=== PATIENT | male | born 1965 | race Caucasian/White ===

== ENCOUNTER 2017-07-15 10:39 | Emergency (ER) | payer BC, OTHER ==
[2017-07-15 12:10] LABS: Hematocrit 48 % (42-52); Hemoglobin 16.8 g/dl (14.0-18.0); Mean Corpuscular HGB Conc 35 g/dl (31-36); Mean Corpuscular Hemoglobin 32 pg (27-31); Mean Corpuscular Volume 90 fL (80-94); Mean Platelet Volume 8 um3 (7.4-10.4); Red Blood Count 5.29 10^6/ul (4.0-5.4); Red Cell Distribution Width 12 % (10.5-15); White Blood Count 7.4 10^3/ul (3.5-10.8)
[2017-07-15] MEDS ORDERED: Acetaminophen TAB* 325 MG PO ONE (12:19)
[2017-07-15 12:25] LABS: Albumin 4.3 g/dL (3.2-5.2); Calcium 9.3 mg/dL (8.6-10.3); EGFR African American 109.2 (>60); EGFR Non-African American 84.9 (>60); Globulin 2.5 g/dL (2-4); Potassium 3.7 mmol/L (3.5-5.0); Total Bilirubin 0.9 mg/dL (0.2-1.0); Total Protein 6.8 g/dL (6.4-8.9)
[2017-07-15 12:26] LABS: C Reactive Protein 2.14 mg/L (< 5.00)
[2017-07-15 13:12] VITALS: BP 142/90
[2017-07-15 13:59] LABS: Urine Bilirubin Negative (Negative); Urine Glucose Negative (Negative); Urine Nitrite Negative (Negative)
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
== END 2017-07-15 13:11 | disposition home or self-care (01) ==
LOC: ED 10:39
DX: S40.022A Contusion of left upper arm, initial encounter (principal); S70.02XA Contusion of left hip, initial encounter; I10 Essential (primary) hypertension; Z87.891 Personal history of nicotine dependence; V89.2XXA Person injured in unspecified motor-vehicle accident, traffic, initial encounter; Y92.410 Unspecified street and highway as the place of occurrence of the external cause
CPT/HCPCS: 36415; 80053; 81003; 84484; 85025; 85610; 86140; 93005; 99283

== ENCOUNTER 2018-07-02 13:33 | Emergency (ER) | payer SELFPAY ==
[2018-07-02] MEDS ORDERED: Tetan/Diph/Pertus SYR(Tdap)* 0.5 ML SYR(BOOSTRIX) use SYR IM ONE (15:18)
[2018-07-02] MEDS ORDERED: Lidocaine 1%* 5 ML VIAL INJ ONE (15:18)
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
[2018-07-02 16:12] VITALS: BP 0/0
== END 2018-07-02 16:11 | disposition home or self-care (01) ==
LOC: ED 13:33
DX: S61.012A Laceration without foreign body of left thumb without damage to nail, initial encounter (principal); S66.222A Laceration of extensor muscle, fascia and tendon of left thumb at wrist and hand level, initial encounter; W26.0XXA Contact with knife, initial encounter; Y92.9 Unspecified place or not applicable; Z23 Encounter for immunization; I10 Essential (primary) hypertension; Z88.8 Allergy status to other drugs, medicaments and biological substances; Z87.891 Personal history of nicotine dependence
CPT/HCPCS: 12001; 90471; 90715; 99282

== ENCOUNTER 2018-07-06 15:04 | Day surgery (SDC) | payer BC ==
[~2018-07-06 15:04] MED LIST: Acetaminophen TAB* 325 MG PO PRN; Buffered Lidocaine 0.9% SYRIN* 5 ML/SYR SYRINGE INTRADERM ONE; DiMENhydriNATE IV* 50 MG/ML VIAL IV PUSH PRN; Famotidine IV* 10 MG/ML 2 ML (20 mg) IV ONE; Famotidine IV* 10 MG/ML 2 ML (20 mg) ONE; Naloxone* 0.4 MG/ML 1 ML VIAL IV PRN; oxyCODONE TAB* 5 MG TAB PO PRN
[2018-07-06] MEDS ORDERED: fentaNYL* 50 MCG/ML 2 ML VIAL (100 MCG VIAL) ONE (17:27)
[2018-07-06] MEDS ORDERED: Midazolam* 1 MG/ML 5 ML VIAL (5 MG) ONE (17:28)
[2018-07-06] MEDS ORDERED: Bupivacaine 0.25% SDV PF* 10 ML VIAL INJ ONE (18:03)
[2018-07-06] MEDS ORDERED: Lidocaine 2% PF * 5 ML VIAL ONE (18:31)
[2018-07-06] MEDS ORDERED: Propofol* 10 MG/ML 20 ML BTL ONE (18:31)
[2018-07-06] MEDS ORDERED: Ondansetron INJ* 2 MG/ML VIAL ONE (18:31)
[2018-07-06] MEDS ORDERED: Ketorolac INJ* 30 MG/ML 1 ML VIAL ONE (18:31)
[2018-07-06 19:07] VITALS: BP 135/85
--- NOTE | 2018-07-07 09:15 | OP ---
DATE OF OPERATION: 07/06/18 [facility] DATE OF : 69 SURGEON: Damian Fernandes MD DEPUTY OF COUNTER INTELLIGENCE: None. ANESTHESIOLOGIST: Dr. Patel ANESTHESIA: Local MAC. PRE-OP DIAGNOSIS: Left thumb extensor tendon laceration over the proximal phalanx. POST-OP DIAGNOSIS: Left thumb extensor tendon laceration over the proximal phalanx. OPERATIVE PROCEDURE: Repair of left thumb extensor tendon laceration over the proximal phalanx. INDICATIONS: Victor M had a laceration. He had about of 40 degree extension lag of the IP joint. We talked about the risks and benefits. He wanted to proceed with surgery. ESTIMATED BLOOD LOSS: 2 mL. COMPLICATIONS: None. FINDINGS: See above and below. DESCRIPTION OF PROCEDURE: Victor M was seen in the preoperative holding area. The correct side and site of the procedure were identified. We came back to the operating room. The arm was prepped and draped in the usual fashion. I did a digital block with 0.25% plain Marcaine. A time-out was performed. The arm was exsanguinated with an Esmarch and the tourniquet inflated to 250 mmHg. I extended the traumatic laceration little bit proximal and distally. The flaps were raised to expose the tendon laceration, this was cleaned. I placed a one 6-0 Prolene suture with the knot buried in the subtendinous fatty layer to give the tendon nice bed to snug. I then used the 3-0 FiberWire in Silfverskiold-type fashion to repair the extensor tendon. This came together very nicely with good apposition. After the repair was done I flexed and extended the IP joint multiple times. There was absolutely no gapping at the repair site. Thumb sat just right at neutral. Everything was looking good, so we irrigated out the wounds. The skin was closed with 4-0 nylon suture and the wound was dressed and an Alumafoam splint was applied with the IP in the neutral extension. He was taken to the recovery room in stable condition. [id number][place] [place] [id number] EN
== END 2018-07-06 19:20 | disposition home or self-care (01) ==
LOC: OREAST 15:04
PROVIDERS: ATTEND Orthopaedic Surgery Hand Surgery
DX: S66.222A Laceration of extensor muscle, fascia and tendon of left thumb at wrist and hand level, initial encounter (principal); Z72.0 Tobacco use; I10 Essential (primary) hypertension; W45.8XXA Other foreign body or object entering through skin, initial encounter; Y92.9 Unspecified place or not applicable
CPT/HCPCS: J1885; J2250; J2405; J2704; J3010; J3490

== ENCOUNTER 2018-09-13 21:30 | Emergency (ER) | payer BC, OTHER ==
--- OUTSIDE RECORDS SUMMARY | 2018-09-13 21:36 | XMS REPORT | Continuity of Care Document ---
:1965 External Reference #:[id number] Author Name Yamileth Hu Care Team Providers Name Role Phone Patient's Choice Primary Care Physician Unavailable Payers Type Date Identification Numbers Payment Provider Subscriber Policy Number: [id number] [employer] Victor M Guan PayID: [id number] [address] [place] [address] Expires: 2018 Policy Number: [id number] [facility] Ppo Victor M Guan Group Number: [id number] [address] [address] PayID: [id number] MELVI Méndez [id number] Advance Directives Description No Information Available Problems Date Description Provider Status Onset: 07/04/2018 Laceration of extensor muscle, fascia and Damian Fernandes MD Active tendon of left thumb at wrist and hand level, initial encounter Family History Date Family Member(s) Problem(s) Comments General Heart Disease General Diabetes General cancer Social History Type Date Description Comments Sex Unknown Lives With spouse 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 ETOH Use Currently consumes 3 drinks per week alcohol Recreational Drug Use Denies Drug Use Tobacco Use Start: Unknown Patient is a current cigar- about 6 a smoker, smokes some year days Smoking Status Reviewed: 08/22/18 Patient is a current cigar- about 6 a smoker, smokes some year days Exercise Type/Frequency Exercises regularly Allergies, Adverse Reactions, Alerts Description No Known Drug Allergies Medications Medication Date Status Form Strength Qnty SIG Indications Ordering Provider Tramadol HCL Active Tablets 50mg 30tabs 1 tablet Damian 018 by mouth MD Dom every 4-6 hours as needed pain Losartan Active Tablets 50mg 90tabs 1 by Unknown Potassium 000 mouth every day Baby Aspirin 0 Active Chewtabs 81mg 100unit 1 by Unknown 000 s mouth every day Multi Vitamin Active Tablets Unknown Daily 000 [place] Hx Tablets 5-325mg 40tabs 1-2 by Neli 014 - mouth Marshall-Mason every 4 g, M.D. 015 hours as needed Immunizations Description No Information Available Vital Signs Date Vital Result Comment 08/22/2018 8:14am Height 70 inches 5'10" Heart Rate 76 /min BP Systolic 138 mmHg BP Diastolic 90 mmHg Respiratory Rate 18 /min Pain Level 2 07/18/2018 9:22am Height 70 inches 5'10" Heart Rate 85 /min BP Systolic 120 mmHg BP Diastolic 86 mmHg Respiratory Rate 18 /min Body Temperature 98.0 F Pain Level 3 07/04/2018 9:06am Height 70 inches 5'10" Weight 246.50 lb Heart Rate 68 /min BP Systolic Sitting 142 mmHg BP Diastolic Sitting 108 mmHg Respiratory Rate 16 /min Body Temperature 97.2 F Pain Level 0 BMI (Body Mass Index) 35.4 kg/m2 08/20/2014 10:41am Height 70 inches 5'10" Weight 219.00 lb Heart Rate 76 /min BP Systolic Sitting 138 mmHg BP Diastolic Sitting 98 mmHg Pain Level 2 back BMI (Body Mass Index) 31.4 kg/m2 06/11/2014 8:20am Height 70 inches 5'10" Weight 225.00 lb Heart Rate 86 /min BP Systolic 141 mmHg BP Diastolic 88 mmHg BMI (Body Mass Index) 32.3 kg/m2 04/16/2014 8:07am Height 70 inches 5'10" Weight 225.00 lb Pain Level 0 BMI (Body Mass Index) 32.3 kg/m2 03/25/2014 8:05am Height 70 inches 5'10" Weight 225.00 lb Heart Rate 68 /min BMI (Body Mass Index) 32.3 kg/m2 03/20/2014 8:08am Height 70 inches 5'10" Weight 225.00 lb Heart Rate 68 /min BMI (Body Mass Index) 32.3 kg/m2 03/13/2014 11:33am Height 70 inches 5'10" Weight 225.00 lb Heart Rate 67 /min BP Systolic 134 mmHg BP Diastolic 92 mmHg BMI (Body Mass Index) 32.3 kg/m2 Results Description No Information Available Procedures Date Code Description Status 07/18/2018 25815 Fingersplint Application Completed 07/06/2018 84996 Repair,Extensor Tendon,Finger Prim Or Sec W/O Free Graft Completed Each Ten 07/06/2018 90914 Repair,Extensor Tendon,Finger Prim Or Sec W/O Free Graft Completed Each Ten 03/14/2014 51314 Suture Nerve, Digital Hand Or Foot, Each Addtl Completed 03/14/2014 71707 Suture Nerve, Digital Hand Or Foot Completed 03/14/2014 31004 Suture Nerve, Digital Hand Or Foot Completed Encounters Type Date Location Provider Dx Diagnosis Office Visit 07/04/2018 Orthopedic Services Damian Fernandes, S66.222A Lacerat extensor 8:45a Of [place]quito arellano/fasc/tend l thm at [facility]/hnd lv, init Office Visit 08/20/2014 Neurosurgery Eulalio Raymond 805.4 FX Lumbar Closed 10:40a Services Of Kumar Handley M.D. W/O Spinal Cord Injury Office Visit 03/13/2014 Orthopedic Services Neli 882.1 Open Wound Hand 10:30a Of [place]quito Wilks, Except Finger(S) Consuelo Complicated Plan of Treatment 07/18/2018 - Damian Fernandes, MDS66.222D Laceration of extensor muscle, fascia and tendon of left thuFollow up:Follow up: 4 weeks
[2018-09-13 21:39] VITALS: BP 125/83
[2018-09-13 22:00] LABS: Influenza A Molecular NEGATIVE (Negative); Influenza B Molecular NEGATIVE (Negative)
--- NOTE | 2018-09-13 22:12 | UC ---
Respiratory Complaint HPI - HPI Summary HPI Summary: 53 yo male with the onset this am of fatigue/runny nose/cough and mylagias no CP or SOB no n/v/d no UTI symptoms - History of Current Complaint Chief Complaint: UCGeneralIllness Stated Complaint: FLU LIKE SYMP Time Seen by Provider: 09/13/18 21:57 Hx Obtained From: Patient Onset/Duration: Sudden Onset, Lasting Hours Timing: Constant Severity Initially: Moderate Severity Currently: Mild Pain Intensity: 4 Pain Scale Used: 0-10 Numeric Character: Cough: Nonproductive Aggravating Factors: Nothing Associated Signs And Symptoms: Positive: Fever, Chills, URI, Nasal Congestion, Sinus Discomfort - Allergies/Home Medications Allergies/Adverse Reactions: Allergies Allergy/AdvReac Type Severity Reaction Status Date / Time lisinopril AdvReac Coughing Verified 09/13/18 21:39 PMH/Surg Hx/FS Hx/Imm Hx - Surgical History Surgical History: Yes Surgery Procedure, Year, and Place: WISDOM TEETH, 25 YRS AGO. MIDDLE FINGER RIGHT [place] [facility] [place] Family History Known Family History: Positive: Cardiac Disease - Mother and father, Hypertension, Diabetes - Social History Alcohol Use: Weekly Alcohol Amount: 7-10 PER WEEK Substance Use Type: None Smoking Status (MU): Light Every Day Tobacco Smoker Type: Cigars Amount Used/How Often: 5 CIGARS A YEAR Have You Smoked in the Last Year: No Review of Systems All Other Systems Reviewed And Are Negative: Yes Constitutional: Positive: Fever, Chills, Fatigue Skin: Positive: Negative Eyes: Positive: Negative ENT: Positive: Nasal Discharge, Sinus Congestion, Sinus Pain/Tenderness Respiratory: Positive: Cough Cardiovascular: Positive: Negative Gastrointestinal: Positive: Negative Genitourinary: Positive: Negative Motor: Positive: Negative Neurovascular: Positive: Negative Musculoskeletal: Positive: Negative Neurological: Positive: Negative Psychological: Positive: Negative Is Patient Immunocompromised?: Yes Physical Exam Triage Information Reviewed: Yes Appearance: Well-Appearing, No Pain Distress, Well-Nourished Vital Signs: Initial Vital Signs Temp 97 F 09/13/18 21:33 Pulse 92 09/13/18 21:33 Resp 16 09/13/18 21:33 BP 125/83 09/13/18 21:33 Pulse Ox 100 09/13/18 21:33 Vital Signs Reviewed: Yes Eyes: Positive: Conjunctiva Clear ENT: Positive: Hearing grossly normal, Nasal congestion, Nasal drainage, TMs normal. Negative: Tonsillar swelling, Tonsillar exudate, Dental tenderness, Sinus tenderness, Uvula midline Neck: Positive: Supple, Nontender, No Lymphadenopathy Respiratory: Positive: Lungs clear, Normal breath sounds, No respiratory distress, No accessory muscle use Cardiovascular: Positive: RRR, No Murmur Musculoskeletal: Positive: ROM Intact, No Edema Neurological: Positive: Alert Psychological Exam: Normal UC Diagnostic Evaluation - Laboratory O2 Sat by Pulse Oximetry: 100 - normal/not hypoxic Diagnostic Studies Comment: influenza (-) Respiratory Course/Dx - Differential Dx/Diagnosis Provider Diagnosis: Influenza-like illness Discharge - Sign-Out/Discharge Documenting (check all that apply): Patient Departure All imaging exams completed and their final reports reviewed: No Studies - Discharge Plan Condition: Stable Disposition: HOME Patient Education Materials: Upper Respiratory Infection (ED) Referrals: Jayce Cruz MD [Primary Care Provider] - 5 Days (if not better) Additional Instructions: rest fluids tylenol or advil recheck for new or worsening symptoms - Billing Disposition and Condition Condition: STABLE Disposition: Home
== END 2018-09-13 22:19 | disposition home or self-care (01) ==
LOC: UCEAST 21:30
DX: J11.1 Influenza due to unidentified influenza virus with other respiratory manifestations (principal); Z88.8 Allergy status to other drugs, medicaments and biological substances; F17.290 Nicotine dependence, other tobacco product, uncomplicated
CPT/HCPCS: 99211; G0463